=== PATIENT | female | born 1930 | race Caucasian/White ===

== ENCOUNTER 2017-01-11 08:48 | Emergency (ER) | payer MEDICARE, OTHER ==
[2017-01-11 10:15] LABS: HEMOGLOBIN 13.7 gm/dl (12.3-15.3); RED BLOOD COUNT 4.53 M/UL (4.00-5.10)
== END 2017-01-11 12:52 | disposition home or self-care (01) ==
LOC: ER1 08:48
PROVIDERS: Specialist/Technologist Athletic Trainer
DX: I50.9 Heart failure, unspecified (principal); J90 Pleural effusion, not elsewhere classified; N18.9 Chronic kidney disease, unspecified; I25.2 Old myocardial infarction; Z95.1 Presence of aortocoronary bypass graft; Z95.5 Presence of coronary angioplasty implant and graft; Z79.01 Long term (current) use of anticoagulants; Z79.899 Other long term (current) drug therapy
CPT/HCPCS: ECHO; 36415; 36600; 71010; 80053; 82550; 82553; 82803; 83605; 83874; 83880; 84484; 85025; 87040; 93005; 93306; 96374; 99284

== ENCOUNTER 2020-09-28 13:53 | Inpatient (IN) | payer MEDICARE, OTHER ==
[~2020-09-28] VITALS: Ht 165.1 cm; Wt 79.4 kg
[~2020-09-28 13:53] MED LIST: 3 IN 1 COMMODE XX; AMOXICILLIN500 MG PO; ASPIRIN EC81 MG PO; ATORVASTATIN CA20 MG PO; AUGMENTIN 875-1 EACH PO; DOCUSATE SODIU100 MG PO; FISH OIL 1,0001 EACH PO; FUROSEMIDE20 MG PO; LEVOFLOXACIN250 MG PO; LOPRESSOR 25 MG25 MG PO; METOPROLOL TART25 MG PO; MUCINEX600 MG PO; NEXIUM40 MG PO; OMNICEF 300 MG300 MG PO; PHENERGAN W/CO473 M1 PO; PREDNISONE20 MG PO; SYMBICORT 160-1 INHA INH; TYLENOL WITH C1 EACH PO; VENTOLIN HFA 66.7 GM INH; VITAMIN D 40400 UNIT PO; VITAMIN D31000 UNI1 PO; XARELTO10 MG PO; XARELTO15 MG PO
[2020-09-28 15:20] LABS: HEMOGLOBIN 13.7 gm/dl (12.3-15.3); RED BLOOD COUNT 4.47 M/UL (4.00-5.10); WHITE BLOOD COUNT 17.9 K/UL (4.5-11.0)
[2020-09-28 17:23] LABS: BUN/CREATININE RATIO 20 (0-10)
[2020-09-28] MEDS ORDERED: OMEPRAZOLE40 MG PO (19:03)
[2020-09-28] MEDS ORDERED: ALBUTEROL2.5 MG/3 M INH (19:09)
[2020-09-29 05:28] LABS: HEMOGLOBIN 13.1 gm/dl (12.3-15.3); RED BLOOD COUNT 4.31 M/UL (4.00-5.10)
[2020-09-29 05:55] LABS: BUN/CREATININE RATIO 20 (0-10)
[2020-09-29] MEDS ORDERED: BENZONATATE100 MG PO (10:06)
[2020-09-29] MEDS ORDERED: SYMBICORT 160-1 INHA INH (10:08)
[2020-09-29 12:47] LABS: RBC (AUTOMATED) 700 (0-100000); WBC (AUTOMATED) 305 (0-500)
[2020-09-29 12:48] LABS: MONONUCLEAR CELLS 90.5 (75-100); POLYMORPHONUCLEAR % 9.5 (0-25)
[2020-09-29 14:45] LABS: LDH, BODY FLUID 127 U/L; TOTAL PROTEIN, BODY FLUID 2.3 gm/dL
[2020-09-30 05:04] LABS: HEMOGLOBIN 12.8 gm/dl (12.3-15.3); RED BLOOD COUNT 4.14 M/UL (4.00-5.10); WHITE BLOOD COUNT 20.8 K/UL (4.5-11.0)
[2020-10-01 05:39] LABS: HEMOGLOBIN 12.1 gm/dl (12.3-15.3); RED BLOOD COUNT 3.96 M/UL (4.00-5.10); WHITE BLOOD COUNT 15.9 K/UL (4.5-11.0)
[2020-10-02 05:13] LABS: HEMOGLOBIN 12.7 gm/dl (12.3-15.3); RED BLOOD COUNT 4.16 M/UL (4.00-5.10); WHITE BLOOD COUNT 18.5 K/UL (4.5-11.0)
[2020-10-03 04:12] LABS: HEMOGLOBIN 11.6 gm/dl (12.3-15.3); RED BLOOD COUNT 3.76 M/UL (4.00-5.10); WHITE BLOOD COUNT 14.7 K/UL (4.5-11.0)
--- NOTE | 2020-10-05 04:51 | NUR ---
SINCE ARRIVING TO FLOOR, PT HAS DENIED NEED FOR PAIN MEDICINE. PT HAS BEEN ADVISED ON PAIN CONTROL EACH HOUR SINCE 2154 ON 10/04/20. PT'S GRANDDAUGHTER HAS ALSO BEEN ADVISED ON ASKING FOR PAIN MEDS WHEN NEEDED FOR PT. TM
[2020-10-06 08:14] LABS: (LD) FRACTION 1 19 % (17-32); (LD) FRACTION 2 37 % (25-40); (LD) FRACTION 3 23 % (17-27); (LD) FRACTION 4 10 % (5-13); (LD) FRACTION 5 11 % (4-20); CK-BB 0 % (0); CK-MB 0 % (0-3); CK-MM 100 % (97-100); LDH 244 IU/L (119-226); MACRO TYPE 1 0 % (Not Observed); MACRO TYPE 2 0 % (Not Observed)
== END 2020-10-07 11:40 | DRG 870 ==
LOC: ER1 13:53 → CDU 17:10 → CCU 17:10 → M/S 10-04 21:50
PROVIDERS: Internal Medicine; Physician Assistant; ADMIT Internal Medicine
PROC: 5A1955Z Respiratory Ventilation, Greater than 96 Consecutive Hours (ICD-10-PCS; principal; 2020-09-28)
PROC: 0BH17EZ Insertion of Endotracheal Airway into Trachea, Via Natural or Artificial Opening (ICD-10-PCS; 2020-09-28)
PROC: 05H533Z Insertion of Infusion Device into Right Subclavian Vein, Percutaneous Approach (ICD-10-PCS; 2020-09-28)
PROC: B546ZZA Ultrasonography of Right Subclavian Vein, Guidance (ICD-10-PCS; 2020-09-28)
PROC: 0W9B30Z Drainage of Left Pleural Cavity with Drainage Device, Percutaneous Approach (ICD-10-PCS; 2020-09-29)
PROC: B24BZZZ Ultrasonography of Heart with Aorta (ICD-10-PCS; 2020-09-29)
DX: A41.9 Sepsis, unspecified organism (principal); R65.21 Severe sepsis with septic shock; J96.21 Acute and chronic respiratory failure with hypoxia; J18.9 Pneumonia, unspecified organism; G93.41 Metabolic encephalopathy; C34.90 Malignant neoplasm of unspecified part of unspecified bronchus or lung; C79.72 Secondary malignant neoplasm of left adrenal gland; J90 Pleural effusion, not elsewhere classified; I48.92 Unspecified atrial flutter; N17.9 Acute kidney failure, unspecified; E87.2 Acidosis; I42.9 Cardiomyopathy, unspecified; I13.0 Hypertensive heart and chronic kidney disease with heart failure and stage 1 through stage 4 chronic kidney disease, or unspecified chronic kidney disease; I50.22 Chronic systolic (congestive) heart failure; Z20.822 Contact with and (suspected) exposure to COVID-19; Z51.5 Encounter for palliative care; K82.8 Other specified diseases of gallbladder; N18.30 Chronic kidney disease, stage 3 unspecified; E87.6 Hypokalemia; E87.70 Fluid overload, unspecified; I25.10 Atherosclerotic heart disease of native coronary artery without angina pectoris; E88.09 Other disorders of plasma-protein metabolism, not elsewhere classified; I48.0 Paroxysmal atrial fibrillation; Z95.5 Presence of coronary angioplasty implant and graft; Z95.1 Presence of aortocoronary bypass graft; Z85.828 Personal history of other malignant neoplasm of skin; Z95.810 Presence of automatic (implantable) cardiac defibrillator; Z87.891 Personal history of nicotine dependence; Z79.01 Long term (current) use of anticoagulants; Z79.899 Other long term (current) drug therapy; Z78.1 Physical restraint status
CPT/HCPCS: ECHO; 31500; 36415; 36556; 36600; 51702; 70450; 71045; 71250; 76700; 80048; 80053; 80076; 80202; 81001; 82550; 82552; 82553; 82803; 82962; 83605; 83615; 83625; 83735; 83874; 83880; 84132; 84157; 84484; 85025; 85027; 87015; 87070; 87086; 87116; 87205; 87206; 89051; 92610; 93005; 93306; 93971; 94002; 94003; 94640; 94664; 94760; 96365; 96366; 96367; 96375; 99285; A6212; C1729; C9113; J0330; J0696; J1205; J1940; J2060; J2185; J2250; J2270; J3370; J3475; J3480; J7030; J7070; P9047; U0002